=== PATIENT | female | born 1970 | race Hispanic/Latino ===

== ENCOUNTER 2017-03-03 06:39 | Emergency (ER) | payer OTHER ==
[~2017-03-03] VITALS: Ht 157.5 cm; Wt 86.2 kg
[~2017-03-03 06:39] MED LIST: FERROUS SULFAT325 M3 PO; FLAGYL500 MG PO; LEVOTHYROXINE137 MCG PO; METFORMIN HCL500 M3 PO
[2017-03-03 10:22] LABS: ABSOLUTE BASOPHIL COUNT 0 /CUMM (0.0-0.2); ABSOLUTE EOSINOPHIL COUNT 0.2 /CUMM (0.0-0.7); ABSOLUTE GRANULOCYTE CT 9.4 /CUMM (1.4-6.5); ABSOLUTE LYMPH COUNT 0.5 /CUMM (1.2-3.4); ABSOLUTE MONOCYTE COUNT 0.4 /CUMM (0.10-0.60); BASOPHIL % 0.1 % (0.0-2.0); EOSINOPHIL % 1.6 % (0-5); HEMATOCRIT 29.2 % (37-47); MEAN CORPUSCULAR HGB 25.3 PG (27.0-31.0); MEAN CORPUSCULAR HGB CONC 31.7 G/DL (33.0-37.0); MEAN CORPUSCULAR VOLUME 79.8 FL (81.0-99.0); MEAN PLATELET VOLUME 7.7 FL (7.4-10.4); RBC DISTRIBUTION WIDTH 14.5 % (11.5-14.5); RED BLOOD CELL CT 3.66 /CUMM (4.20-5.40); WHITE BLOOD CELL COUNT 10.4 /CUMM (4.8-10.8)
[2017-03-03 10:44] LABS: PLATELET COUNT 509 /CUMM (130-400)
[2017-03-03 10:45] LABS: GRANULOCYTE % 90.1 % (42.2-75.2)
--- NOTE | 2017-03-03 11:39 | ED GENERAL ADULT ---
History of Present Illness General Chief Complaint: Allergy Symptoms Stated Complaint: ALLERGIC REACTION Source: patient, family, old records, surgeon Exam Limitations: no limitations Vital Signs & Intake/Output Vital Signs & Intake/Output Vital Signs Date Time Temp Pulse Resp B/P B/P Pulse O2 O2 Flow FiO2 Mean Ox Delivery Rate 03/03 1148 97.9 84 18 108/74 100 Room Air 03/03 1038 98.5 88 18 97/66 100 Room Air 03/03 0648 100.9 88 18 102/55 97 Room Air Allergies Coded Allergies: No Known Allergies (03/03/17) Reconcile Medications Cephalexin (Keflex) 500 MG CAPSULE 1 CAP PO TID cellulitis Diphenhydramine HCl (Benadryl Allergy) 25 MG TABLET 1-2 TAB PO Q6P PRN itchy rash Ferrous Sulfate 325 MG (65 MG IRON) TABLET 1 TAB PO BID SUPPLEMENT (Reported) Levothyroxine Sodium 137 MCG TABLET 1 TAB PO DAILY THYROID (Reported) Metformin HCl 500 MG TABLET 1 TAB PO BID DM (Reported) Oxycodone HCl/Acetaminophen (Percocet 5-325 MG Tablet) 5 MG-325 MG TABLET 1-2 TAB PO 4 TIMES/DAY PRN severe pain Triage Note: TRIAGE: BIBA FROM HOME REPORTING HIVES SINCE EARLIER YESTERDAY, APPROX 8-10PM "GOT WORSE, WENT TO SLEEP, WOKE UP AND THEY WERE EVERYWHERE." PATIENT DENIES ANY SOB, AIRWAY PATENT, SPEECH CLEAR. PREHOSP IV EST #22 RIGHT HAND, PREHOSP MEDICATED W/ BENADRYL 50MG IV AND 20MG PEPCID IV. PATIENT DENIES ANY KNOWN ALLERGIES/ DENIES EXPOSURE TO NEW PRODUCTS. Triage Nurses Notes Reviewed? yes Onset: 3 days Duration: day(s):, constant, continues in ED, getting worse Timing: recent history Severity: severe Modifying Factors: Improves With: immobilization, medication, rest. Worsens With: movement. LMP (ages 10-50): unknown : No Patient currently breastfeeds: No HPI: 2 weeks prior to admission patient had panniculectomy bilateral thigh and tricep liposuction. She has indwelling ANGELIQUE drains at bilateral hips complaining of pain at the site with redness and warmth. 3 days prior to admission she was prescribed hydromorphone and since that time has had episodes of urticaria relieved with Benadryl that are increasing in frequency and intensity. She also complains of nausea chills. Past History Travel History Traveled to [place] past 21 day No Medical History Any Pertinent Medical History? see below for history Blood Disorders: anemia HEALTH UNDERWRITER/Reproductive: fibroid Surgical History Surgical History: tubal ligation Psychosocial History What is your primary language Setswana Tobacco Use: Never used ETOH Use: denies use Illicit Drug Use: denies illicit drug use Family History Hx Contributory? No Review of Systems Review of Systems Constitutional: Reports: see HPI, chills, weakness. EENTM: Reports: no symptoms. Respiratory: Reports: no symptoms. Cardiovascular: Reports: no symptoms. GI: Reports: no symptoms. Genitourinary: Reports: no symptoms. Musculoskeletal: Reports: see HPI. Skin: Reports: see HPI. Neurological/Psychological: Reports: no symptoms. Hematologic/Endocrine: Reports: no symptoms. Immunologic/Allergic: Reports: no symptoms. All Other Systems: Reviewed and Negative Physical Exam Physical Exam General Appearance: well developed/nourished, alert, awake, anxious, severe distress, obese Head: atraumatic, normal appearance Eyes: Bilateral: normal appearance, PERRL, EOMI. Ears, Nose, Throat: normal pharynx, normal ENT inspection, hearing grossly normal, moist mucus membranes Neck: normal inspection, supple, full range of motion, no midline tenderness Respiratory: normal breath sounds, chest non-tender, no respiratory distress, quiet respiration, lungs clear Cardiovascular: regular rate/rhythm, normal peripheral pulses, norml femoral pulses equa Peripheral Pulses: 4+ carotid (R), 4+ carotid (L) Gastrointestinal: normal bowel sounds, soft, non-tender, no organomegaly Back: normal inspection, normal range of motion Extremities: normal capillary refill, tenderness, bilat hips with ANGELIQUE drains and erythema / tenderness Neurologic/Psych: no motor/sensory deficits, awake, alert, oriented x 3, television receiver analyzer II- XII nml as tested Reflexes: 2+: bicep (R), bicep (L). Skin: intact, abdominal wounds, bilateral triceps wounds without inflammation erythema, discharge Lymphatic: no anterior cervical gurdeep Core Measures ACS in differential dx? No CVA/TIA Diagnosis: No Sepsis Present: No Sepsis Focused Exam Completed? No Progress Differential Diagnoses I considered the following diagnoses in my evaluation of the patient: post op pain, medication reaction, cellulitis, fluid collection Plan of Care: Orders Procedure Date/time Status C-REACTIVE PROTEIN 03/03 1011 Complete BLOOD CULTURE 03/03 715 Active LIPASE 03/03 715 Complete HIGH SENSITIVITY CRP 03/03 0616 Complete COMPREHENSIVE METABOLIC PANEL 03/03 715 Complete CBC WITHOUT DIFFERENTIAL 03/03 715 Complete Laboratory Tests 03/03/17 1011: Anion Gap 13, Estimated GFR > 60, BUN/Creatinine Ratio 11.7, Glucose 96, Calcium 8.1 L, Total Bilirubin 0.8, AST 53 H, ALT 59 H, Alkaline Phosphatase 146 H, C-Reactive Prot, Quant > 9.0 H, C-React Prot High Sens > 15.0 H, Total Protein 6.2 L, Albumin 3.0 L, Globulin 3.2, Albumin/Globulin Ratio 0.9 L, Lipase 36, CBC w Diff NO MAN DIFF REQ, RBC 3.66 L, MCV 79.8 L, MCH 25.3 L, RDW 14.5, MPV 7.7, Gran % 90.1 H, Lymphocytes % 4.6 L, Monocytes % 3.6, Eosinophils % 1.6, Basophils % 0.1, Absolute Granulocytes 9.4 H, Absolute Lymphocytes 0.5 L, Absolute Monocytes 0.4, Absolute Eosinophils 0.2, Absolute Basophils 0, PUBS MCHC 31.7 L Microbiology 03/03 1011 BLOOD: Blood Culture - RECD 03/03 715 BLOOD: Blood Culture - ORD Initial ED EKG: none Comments: Discussed Dr. Montilla. CT not needed will likely show fluid as drains still in place. CT canceled , IV access unale. Improved after interventions. Plan of care discussed. Departure Departure Time of Disposition: 1140 Disposition: HOME OR SELF CARE Condition: Stable Clinical Impression Primary Impression: Postoperative pain Secondary Impressions: Adverse drug reaction, Cellulitis Referrals: Yoni ERIC,Evelyn (PCP/Family) Roldan ERIC,James Alexandra Departure Forms: Customer Survey General Discharge Information Prescriptions: Current Visit Scripts Oxycodone HCl/Acetaminophen (Percocet 5-325 MG Tablet) 1-2 TAB PO 4 TIMES/DAY PRN severe pain #20 TAB Diphenhydramine HCl (Benadryl Allergy) 1-2 TAB PO Q6P PRN itchy rash #30 TAB Ref 1 Cephalexin (Keflex) 1 CAP PO TID #30 CAP Critical Care Note Critical Care Note Critical Care Time: non-applicable
[2017-03-03] MEDS ORDERED: PERCOCET 5-3251 EACH PO (11:45)
[2017-03-03] MEDS ORDERED: BENADRYL ALLERG25 M2 PO (11:45)
[2017-03-03] MEDS ORDERED: KEFLEX500 M1 PO (11:45)
[2017-03-03 11:48] VITALS: BP 108/74
== END 2017-03-03 11:58 ==
LOC: ERH 06:39
PROVIDERS: Emergency Medicine
DX: G89.18 Other acute postprocedural pain (principal); L03.115 Cellulitis of right lower limb; L03.116 Cellulitis of left lower limb; T40.2X5A Adverse effect of other opioids, initial encounter
CPT/HCPCS: 87040; 96374; 96375; J0131; J2405